=== PATIENT | female | born 1940 | race Caucasian/White ===

== ENCOUNTER 2020-11-19 10:37 | Outpatient (CLI) | payer MEDICARE, SELFPAY | END 2020-11-19 10:38 | disposition home or self-care (01) | LOC: ANHAUDIO 10:42 | DX: H91.93 Unspecified hearing loss, bilateral (principal) | CPT/HCPCS: 92557; 92567 ==

== ENCOUNTER 2020-12-09 11:09 | Outpatient (RCR) | payer SELFPAY | END 2020-12-09 23:59 | disposition home or self-care (01) | LOC: ANHAUDIO 11:09 | DX: Z46.1 Encounter for fitting and adjustment of hearing aid (principal) | CPT/HCPCS: V5261 ==

== ENCOUNTER 2020-12-23 10:38 | Outpatient (CLI) | payer MEDICARE, SELFPAY ==
--- NOTE | ~2020-12-23 | XR_ITS ---
XR chest 2V DATE: 12/23/2020 12:05 INDICATION: Shortness of breath while exercising TECHNIQUE: PA and lateral views COMPARISON: None FINDINGS: Mild cardiomegaly. There is extensive thoracic aortic calcification. No hilar or mediastina l enlargement. Bilateral hyperinflation. No pulmonary infiltrate or consolidation, pleural effusion or pulmonary vas cular congestion or pneumothorax. Diffuse osteopenia. Degenerative spurring of the thoracic spine. IMPRESSION: Mild cardiomegaly. Aortic atherosclerosis Reviewed, dictated and finalized at location A.
--- NOTE | 2020-12-24 11:45 | WPDPFTINT ---
PFT Procedure Performed PFT Procedure Performed Spirometry with Pre/Post Bronchodilator Plethysmography (Lung Vol) Diffusing Cap (DLCO) Flow Vol Loop PFT Interpretation DOS: 12/23/2020 REQUESTING: Mauri Chapa MD REASON FOR TESTING: shortness of breath on exertion PULMONARY FUNCTION TESTS Testing is reliable and reproducible. Spirometry: FEV1 65% predicted, 1.26 L, reduced. FVC 76% reduced. The FEV1/FVC ratio was reduced 65%. The FEF 25-75 is reduced 40% predicted. After bronchodilator the FVC increases by 13% and greater than 200 mL which is statistically significant. Lung volumes: Total lung capacity 88% normal. Residual volume 106% normal. RV/TLC is 57 %, increased, consistent with air trapping. Airway resistance increased 268%. Diffusion: DLCO 74%, increases to 116% for alveolar volume. Flow volume loop: Scooping in the expiratory limb consistent with obstruction. IMPRESSION: Mild obstructive ventilatory impairment with excellent response to bronchodilator, mild air trapping and normal diffusion. Steffi Villavicencio MD
== END 2020-12-23 10:39 | disposition home or self-care (01) ==
DX: R06.02 Shortness of breath (principal); R94.2 Abnormal results of pulmonary function studies; I51.7 Cardiomegaly; I70.0 Atherosclerosis of aorta
CPT/HCPCS: 71046; 94060; 94726; 94729